=== PATIENT | male | born 2000 | race Caucasian/White ===

== ENCOUNTER 2020-04-07 19:37 | Emergency (ER) | payer BC, MEDICAID ==
[2020-04-07] MEDS ORDERED: DIAZEPAM INJ 10 MG/2 ML DISP.SYRIN IV ONE (20:18)
[2020-04-07] MEDS ORDERED: BACLOFEN 10 MG TABLET PO ONE (20:20)
[2020-04-07] MEDS ORDERED: HYDROCODONE/ACETAMINOPHEN 5-325 MG TABLET PO ONE (20:22)
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
[2020-04-07 20:52] LABS: ABSOLUTE BASOPHILS # (AUTO) 0.1 10^3/uL (0.0-0.2); ABSOLUTE LYMPHOCYTES (AUTO) 2.4 10^3/uL (0.5-4.7); ABSOLUTE MONOCYTES (AUTO) 1.1 10^3/uL (0.1-1.4); ABSOLUTE NEUT (AUTO) 12.2 10^3/uL (1.7-8.2); BASOPHILS % (AUTO) 0.5 % (0-2); EOSINOPHILS % (AUTO) 0.2 % (0-6); HEMATOCRIT 44.4 % (37.9-51.0); HEMOGLOBIN 15.5 g/dL (13.5-17.0); LYMPHOCYTES % (AUTO) 14.9 % (13-45); MEAN CORPUSCULAR HEMOGLOBIN 31.3 pg (27.0-33.4); MEAN CORPUSCULAR VOLUME 90 fl (80-97); MONOCYTES % (AUTO) 7.2 % (3-13); PLATELET COUNT 356 10^3/uL (150-450); RED BLOOD COUNT 4.96 10^6/uL (4.35-5.55); RED CELL DISTRIBUTION WIDTH 13.3 % (11.5-14.0); SEGMENTED NEUTROPHILS % (AUTO) 77.2 % (42-78); TOTAL CELLS COUNTED % (AUTO) 100 %; WHITE BLOOD COUNT 15.8 10^3/uL (4.0-10.5)
[2020-04-07 21:08] LABS: ALBUMIN 4.8 g/dL (3.7-5.6); ALKALINE PHOSPHATASE 83 U/L (65-260); ANION GAP 12 (5-19); ASPARTATE AMINO TRANSFERASE 24 U/L (10-45); BILIRUBIN,TOTAL 0.5 mg/dL (0.2-1.3); BLOOD UREA NITROGEN 17 mg/dL (7-20); C-REACTIVE PROTEIN 8.4 mg/L (<10.0); CALCIUM 10.1 mg/dL (8.4-10.2); CARBON DIOXIDE 22 mmol/L (22-30); CHLORIDE 105 mmol/L (98-107); GLUCOSE 158 mg/dL (75-110); POTASSIUM 4.1 mmol/L (3.6-5.0); TOTAL PROTEIN 7.8 g/dL (6.3-8.2)
[2020-04-07 21:33] LABS: ERYTHROCYTE SEDIMENTATION RATE 9 mm/hr (0-15)
[2020-04-07] MEDS ORDERED: MORPHINE SULFATE 10 MG/ML INJ IV ONE (22:28)
--- NOTE | 2020-04-07 22:35 | ER Document Report ---
ED Skin Rash/Insect Bite/Abscs - General Chief Complaint: Insect Bite Stated Complaint: BUG BITE/BACK PAIN Time Seen by Provider: 04/07/20 20:15 Primary Care Provider: ARELIS SIMON MD [Primary Care Provider] - Follow up as needed TRAVEL OUTSIDE OF THE [place] IN LAST 30 DAYS: No - HPI Patient complains to provider of: Spider bite - possible black Onset: This evening - 6pm Onset/Duration: Gradual, Persistent Quality of pain: Burning, Cramping Pain Level: 5 Skin Character: Erythema Skin Temperature: Warm Quality of rash: Painful Notes: Patient reports being bitten on his back by a black . Patient reports his friends saw the spider when he crawled out from his shirt. He reports this happened at approximately 6 PM. - Related Data Allergies/Adverse Reactions: No Known Allergies Allergy (Unverified 05/13/13 14:52) Past Medical History - General Information source: Patient - Social History Smoking Status: Never Smoker Frequency of alcohol use: None Drug Abuse: None Family History: Reviewed & Not Pertinent Patient has homicidal ideation: No - Medical History Medical History: Negative Surgical Hx: Negative - Immunizations Immunizations up to date: Yes Review of Systems - Review of Systems Constitutional: No symptoms reported EENT: No symptoms reported Cardiovascular: No symptoms reported Respiratory: No symptoms reported Gastrointestinal: No symptoms reported Genitourinary: No symptoms reported Male Genitourinary: No symptoms reported Musculoskeletal: No symptoms reported Skin: See HPI Neurological/Psychological: No symptoms reported Physical Exam - Vital signs Vitals: Temp Pulse Resp BP Pulse Ox 99.1 F 122 H 18 134/66 H 100 04/07/20 20:03 04/07/20 20:03 04/07/20 20:03 04/07/20 20:03 04/07/20 20:03 - Notes Notes: PHYSICAL EXAMINATION: GENERAL: Well-appearing, well-nourished and in no acute distress. HEAD: Atraumatic, normocephalic. EYES: Pupils equal round and reactive to light, extraocular movements intact, sclera anicteric, conjunctiva are normal. ENT: Nares patent, oropharynx clear without exudates. Moist mucous membranes. NECK: Normal range of motion, supple without lymphadenopathy LUNGS: Breath sounds clear to auscultation bilaterally and equal. No wheezes rales or rhonchi. HEART: Regular rate and rhythm without murmurs ABDOMEN: Soft, nontender, nondistended abdomen. No guarding, no rebound. No masses appreciated. Musculoskeletal: Normal range of motion, no pitting or edema. No cyanosis. NEUROLOGICAL: Cranial nerves grossly intact. Normal speech, normal gait. Normal sensory, motor exams PSYCH: Normal mood, normal affect. SKIN: Erythema to left scapular area. No induration or fluctuance. Course - Re-evaluation Re-evalutation: Patient's pain was controlled after multiple doses of medications here in the emergency department. I discussed the case with my attending physician who advises no further work-up. Will send patient home with prescription for Valium and [place]. Close follow-up with gasoline pump mechanic/PCP. Mother at bedside verbalizes understanding and agreement with plan. - Vital Signs Vital signs: Temp Pulse Resp BP Pulse Ox 99 F 101 H 18 124/71 99 04/08/20 00:56 04/08/20 00:56 04/08/20 00:56 04/08/20 00:56 04/08/20 00:56 - Laboratory Result Diagrams: 04/07/20 20:32 04/07/20 20:32 Laboratory results interpreted by me: 04/07/20 04/07/20 20:32 20:32 WBC 15.8 H Absolute Neuts (auto) 12.2 H Glucose 158 H Discharge - Discharge Clinical Impression: Spider bite Qualifiers: Encounter type: initial encounter Injury intent: accidental or unintentional Qualified Code(s): T63.301A - Toxic effect of unspecified spider venom, accidental (unintentional), initial encounter Condition: Stable Disposition: HOME, SELF-CARE Additional Instructions: Black Spider Bite You have been diagnosed as having a black bite. This bite can be very serious to very young or very old individuals. Healthy persons usually tolerate the unpleasant effects of the venom well, often requiring only treatment of pain and muscle spasms. Black venom typically causes stinging around the site of the bite, then spreading muscle spasms. The pain may become severe if stomach, back, and chest muscles become involved. The usual treatment is oral pain medication and muscle relaxing drugs. More severe cases may require intravenous medication, Antivenin, or hospitalization. Return for further treatment if you develop shortness of breath, severe lightheadedness, or severe pain which does not respond to oral medication. Watch the area for signs of infection. Return as discussed. Follow up with primary care physician on Friday or Friday. Prescriptions: Ibuprofen [Motrin 600 mg Tablet] 600 mg PO Q6HP PRN #30 tablet PRN Reason: Hydrocodone/Acetaminophen [[place] 5-325 mg Tablet] 1 tab PO Q6HP PRN #15 tablet PRN Reason: Diazepam [Valium 5 mg Tablet] 5 mg PO QIDP PRN #15 tablet PRN Reason: Referrals: ARELIS SIMON MD [Primary Care Provider] - Follow up as needed
[2020-04-08] MEDS ORDERED: DIAZEPAM 5 MG TABLET PO ONE (00:26)
[2020-04-08] MEDS ORDERED: KETOROLAC TROMETHAMINE INJ/PF 30 MG/1 ML SDV IV ONE (00:26)
[2020-04-08] MEDS ORDERED: OXYCODONE-ACETAMINOPHEN 5-325 MG TABLET PO ONE (00:27)
[2020-04-08] MEDS ORDERED: HYDROCODONE/ACETAMINOPHEN 5-325 MG (6 TAB/ER DISP) PO PRN (00:27)
[2020-04-08 00:57] VITALS: BP 124/71
== END 2020-04-08 00:57 | disposition home or self-care (01) ==
LOC: ER 19:37
DX: T63.311A Toxic effect of venom of black widow spider, accidental (unintentional), initial encounter (principal)
CPT/HCPCS: 99284; 96374; 96375; 36415; 85025; 85652; 86140; 80053; J3360; J1885; J2270